=== PATIENT | male | born 1955 | race Caucasian/White ===

== ENCOUNTER 2021-06-05 19:37 | Inpatient (IN) | payer MEDICARE ==
[2021-06-05 20:04] LABS: #Basophils 0.1 10x3/uL (0.0-0.2); #Eosinphils 0.1 10x3/uL (0.0-0.5); #Monocytes 0.5 10x3/uL (0.0-1.1); #Neutrophils 5.2 10x3/uL (1.5-8.4); %Basophils 0.9 % (0.0-2.0); %Eosinophils 1.4 % (0.0-6.0); %Lymphocytes 9.8 % (18.0-47.0); %Monocytes 8.3 % (0.0-10.0); %Neutrophils 79.1 % (40.0-75.0); Hemoglobin 10.2 g/dL (13.5-17.5); Mean Corpuscular HGB CONC 30.6 g/dL (32.0-36.0); Mean Corpuscular Hemoglobin 27.3 pg (27.0-33.0); Mean Platelet Volume 10.6 fl (7.4-10.4); Platelet Count 223 10x3/uL (150-450); RBC Distribution Width 16.3 % (11.5-14.5); Red Blood Cell (RBC) Count 3.74 10x6/uL (4.32-5.72); White Blood Cell (WBC) Count 6.5 10x3/uL (3.5-10.5)
[2021-06-05 20:23] LABS: ALT (SGPT) 16 U/L (8-55); AST (SGOT) 15 U/L (5-34); Albumin 3.5 g/dL (3.4-4.8); Alkaline Phosphatase 86 U/L (40-110); Anion Gap 18 mmol/L (10-20); BUN (Urea Nitrogen) 53 mg/dL (8.4-25.7); Bilirubin, Total 2.1 mg/dL (0.2-1.2); Calc. Creatinine Clearance 0 mL/min (70-130); Calcium 8.5 mg/dL (7.8-10.44); Carbon Dioxide 16 mmol/L (23-31); Chloride 109 mmol/L (98-107); Glucose 183 mg/dL (80-115); Potassium 4.4 mmol/L (3.5-5.1); Protein, Total 7.5 g/dL (5.8-8.1); Sodium 139 mmol/L (136-145)
[2021-06-05 20:51] LABS: CKMB 1.8 ng/mL (0-6.6)
[2021-06-05] MEDS ORDERED: Furosemide 40 MG/4 ML VIAL ONE (22:18)
[2021-06-05] MEDS ORDERED: Lidocaine Viscous Sol 2% 15 ml UD Cup ONE (22:24)
[2021-06-05] MEDS ORDERED: Acetaminophen/Codeine 30-300mg Tablet PO SCH (22:45)
[2021-06-05] MEDS ORDERED: hydrALAZINE 25 MG TAB PO SCH (22:45)
[2021-06-05] MEDS ORDERED: Furosemide 40 MG/4 ML VIAL SLOW IVP SCH (22:45)
[2021-06-05] MEDS ORDERED: Apixaban 5 MG TAB PO SCH (22:45)
[2021-06-05] MEDS ORDERED: Isosorbide Dinitrate 20 MG TAB PO SCH (22:45)
[2021-06-05 22:58] LABS: Magnesium 1.8 mg/dL (1.6-2.6)
[2021-06-06] MEDS ORDERED: Isosorbide Dinitrate 20 MG TAB PO SCH (01:00)
[2021-06-06] MEDS ORDERED: Isosorbide Dinitrate 10 MG TAB PO SCH (01:15)
[2021-06-06 04:33] LABS: #Basophils 0.1 10x3/uL (0.0-0.2); #Eosinphils 0.1 10x3/uL (0.0-0.5); #Monocytes 0.6 10x3/uL (0.0-1.1); #Neutrophils 3.8 10x3/uL (1.5-8.4); %Basophils 0.9 % (0.0-2.0); %Eosinophils 2.1 % (0.0-6.0); %Lymphocytes 14.7 % (18.0-47.0); %Monocytes 10.7 % (0.0-10.0); %Neutrophils 71.4 % (40.0-75.0); Hemoglobin 9.8 g/dL (13.5-17.5); Mean Corpuscular HGB CONC 31.8 g/dL (32.0-36.0); Mean Corpuscular Hemoglobin 27.8 pg (27.0-33.0); Mean Corpuscular Volume 87.3 fl (81.2-95.1); Mean Platelet Volume 10.8 fl (7.4-10.4); Platelet Count 202 10x3/uL (150-450); RBC Distribution Width 16.2 % (11.5-14.5); Red Blood Cell (RBC) Count 3.53 10x6/uL (4.32-5.72); White Blood Cell (WBC) Count 5.3 10x3/uL (3.5-10.5)
[2021-06-06 04:41] LABS: Anion Gap 17 mmol/L (10-20); BUN (Urea Nitrogen) 54 mg/dL (8.4-25.7); Calc. Creatinine Clearance 22 mL/min (70-130); Calcium 8.6 mg/dL (7.8-10.44); Carbon Dioxide 17 mmol/L (23-31); Chloride 110 mmol/L (98-107); Glucose 155 mg/dL (80-115); Potassium 4.2 mmol/L (3.5-5.1); Sodium 140 mmol/L (136-145)
[2021-06-06] MEDS ORDERED: Furosemide 40 MG/4 ML VIAL SLOW IVP SCH (06:00)
[2021-06-06] MEDS: Tamsulosin HCl 0.4 MG CAP PO SCH (08:42)
[2021-06-06] MEDS: Allopurinol 100 MG TAB PO SCH (08:42)
[2021-06-06] MEDS: Apixaban 5 MG TAB PO SCH ×2 (08:42→20:32)
[2021-06-06] MEDS: hydrALAZINE 25 MG TAB PO SCH ×3 (08:42→20:32)
[2021-06-06] MEDS: Aspirin 81 mg Enteric Coated Tablet PO SCH (08:43)
[2021-06-06] MEDS: Isosorbide Dinitrate 10 MG TAB PO SCH ×3 (08:43→20:32)
[2021-06-06] MEDS: glipiZIDE 5 MG TAB PO SCH (08:43)
[2021-06-06 09:57] LABS: Troponin I 0.042 ng/mL (< 0.028)
[2021-06-06 12:54] LABS: Troponin I 0.043 ng/mL (< 0.028)
[2021-06-06] MEDS ORDERED: Furosemide 20 MG/2 ML VIAL SLOW IVP SCH (16:30)
[2021-06-06] MEDS ORDERED: Carvedilol 6.25 MG TAB PO SCH (18:15)
[2021-06-07 05:00] LABS: #Basophils 0.1 10x3/uL (0.0-0.2); #Eosinphils 0.3 10x3/uL (0.0-0.5); #Monocytes 0.5 10x3/uL (0.0-1.1); #Neutrophils 2.9 10x3/uL (1.5-8.4); %Basophils 1.3 % (0.0-2.0); %Lymphocytes 18.7 % (18.0-47.0); %Monocytes 11.3 % (0.0-10.0); %Neutrophils 62.3 % (40.0-75.0); Hemoglobin 9.2 g/dL (13.5-17.5); Mean Corpuscular HGB CONC 30.1 g/dL (32.0-36.0); Mean Corpuscular Hemoglobin 27.2 pg (27.0-33.0); Mean Corpuscular Volume 90.5 fl (81.2-95.1); Mean Platelet Volume 10.5 fl (7.4-10.4); Platelet Count 183 10x3/uL (150-450); Red Blood Cell (RBC) Count 3.38 10x6/uL (4.32-5.72); White Blood Cell (WBC) Count 4.7 10x3/uL (3.5-10.5)
[2021-06-07 05:17] LABS: Anion Gap 16 mmol/L (10-20); BUN (Urea Nitrogen) 56 mg/dL (8.4-25.7); Calc. Creatinine Clearance 21 mL/min (70-130); Calcium 8.3 mg/dL (7.8-10.44); Carbon Dioxide 18 mmol/L (23-31); Chloride 108 mmol/L (98-107); Glucose 87 mg/dL (80-115); Sodium 138 mmol/L (136-145)
[2021-06-07] MEDS: Carvedilol 6.25 MG TAB PO SCH ×3 (10:11→16:31)
[2021-06-07] MEDS: Tamsulosin HCl 0.4 MG CAP PO SCH (10:12)
[2021-06-07] MEDS: hydrALAZINE 25 MG TAB PO SCH ×3 (10:12→21:19)
[2021-06-07] MEDS: glipiZIDE 5 MG TAB PO SCH (10:12)
[2021-06-07] MEDS: Allopurinol 100 MG TAB PO SCH (10:12)
[2021-06-07] MEDS: Apixaban 5 MG TAB PO SCH ×2 (10:12→21:19)
[2021-06-07] MEDS: Aspirin 81 mg Enteric Coated Tablet PO SCH (10:12)
[2021-06-07] MEDS: Isosorbide Dinitrate 10 MG TAB PO SCH ×3 (10:12→21:19)
[2021-06-08] MEDS ORDERED: Isosorbide Dinitrate 10 MG TAB ONE (08:19)
[2021-06-08 08:48] LABS: Anion Gap 15 mmol/L (10-20); BUN (Urea Nitrogen) 60 mg/dL (8.4-25.7); Calc. Creatinine Clearance 0 mL/min (70-130); Carbon Dioxide 18 mmol/L (23-31); Chloride 108 mmol/L (98-107); Glucose 110 mg/dL (80-115); Potassium 4.1 mmol/L (3.5-5.1); Sodium 137 mmol/L (136-145)
[2021-06-08] MEDS: hydrALAZINE 25 MG TAB PO SCH ×3 (09:35→20:07)
[2021-06-08] MEDS: Aspirin 81 mg Enteric Coated Tablet PO SCH (09:35)
[2021-06-08] MEDS: Isosorbide Dinitrate 10 MG TAB PO SCH ×3 (09:35→20:08)
[2021-06-08] MEDS: glipiZIDE 5 MG TAB PO SCH (09:35)
[2021-06-08] MEDS: Allopurinol 100 MG TAB PO SCH (09:35)
[2021-06-08] MEDS: Tamsulosin HCl 0.4 MG CAP PO SCH (09:35)
[2021-06-08] MEDS: Apixaban 5 MG TAB PO SCH (09:36)
[2021-06-08] MEDS: Furosemide 20 MG/2 ML VIAL SLOW IVP SCH (09:41)
[2021-06-08 10:30] VITALS: BMI 29.5
[2021-06-08] MEDS ORDERED: CEFAZOLIN 2 GM in Premix Bag 1 BAG IVPB SCH (14:30)
[2021-06-08] MEDS: Carvedilol 6.25 MG TAB PO SCH (15:57)
[2021-06-08 21:57] LABS: SARS-CoV-2 NAA Rapid Test Not Detected (NotDetected)
[2021-06-09] MEDS: Carvedilol 6.25 MG TAB PO SCH ×2 (06:31→18:14)
[2021-06-09] MEDS: Furosemide 20 MG/2 ML VIAL SLOW IVP SCH (09:01)
[2021-06-09] MEDS: Isosorbide Dinitrate 10 MG TAB PO SCH ×3 (09:01→21:08)
[2021-06-09] MEDS: Tamsulosin HCl 0.4 MG CAP PO SCH (09:01)
[2021-06-09] MEDS: Aspirin 81 mg Enteric Coated Tablet PO SCH (09:01)
[2021-06-09] MEDS: glipiZIDE 5 MG TAB PO SCH (09:01)
[2021-06-09] MEDS: hydrALAZINE 25 MG TAB PO SCH ×3 (09:01→21:08)
[2021-06-09] MEDS: Allopurinol 100 MG TAB PO SCH (09:01)
[2021-06-09] MEDS ORDERED: EPINEPHrine 1 MG/ML AMP ONE (12:08)
[2021-06-09] MEDS ORDERED: Lidocaine 2% 20 ml MDV ONE (12:08)
[2021-06-09] MEDS ORDERED: Bupivacaine PF 0.5% 30 ML VIAL ONE ×2 (12:09→14:31)
[2021-06-09] MEDS ORDERED: Protamine Sulfate 50 MG/5 ML VIAL ONE (12:09)
[2021-06-09] MEDS ORDERED: Heparin 5,000 UNITS/ML VIAL ONE (12:13)
[2021-06-09] MEDS ORDERED: Heparin 1,000 UNITS/ML VIAL ONE (12:13)
[2021-06-09] MEDS ORDERED: Phenylephrine 40 MG/NS 250 ML 250 ML ONE (12:31)
[2021-06-09] MEDS ORDERED: PROPOFOL 20 ML ONE (12:32)
[2021-06-09] MEDS ORDERED: Ketamine 50 MG/ML (10ML VIAL) ONE (13:37)
[2021-06-09] MEDS ORDERED: Midazolam HCl 2 mg/2 ml Vial ONE (13:37)
[2021-06-09] MEDS ORDERED: Heparin 10,000 UNITS/ 10 ML VIAL ONE ×2 (14:01→15:03)
[2021-06-09] MEDS ORDERED: Acetaminophen 325 MG TAB PO PRN (20:33)
[2021-06-09] MEDS: Acetaminophen/Codeine 30-300mg Tablet PO PRN (21:08)
[2021-06-10] MEDS: Acetaminophen/Codeine 30-300mg Tablet PO PRN (01:19)
[2021-06-10] MEDS ORDERED: Morphine 4 MG/ML VIAL SLOW IVP SCH ×2 (02:00→06:15)
[2021-06-10 08:07] LABS: #Eosinphils 0.3 10x3/uL (0.0-0.5); #Monocytes 0.6 10x3/uL (0.0-1.1); #Neutrophils 3.6 10x3/uL (1.5-8.4); %Basophils 0.7 % (0.0-2.0); %Eosinophils 4.6 % (0.0-6.0); %Lymphocytes 17.6 % (18.0-47.0); %Monocytes 11.1 % (0.0-10.0); %Neutrophils 65.8 % (40.0-75.0); Hemoglobin 9.2 g/dL (13.5-17.5); Mean Corpuscular HGB CONC 31.2 g/dL (32.0-36.0); Mean Corpuscular Hemoglobin 28.2 pg (27.0-33.0); Mean Corpuscular Volume 90.5 fl (81.2-95.1); Mean Platelet Volume 9.9 fl (7.4-10.4); Platelet Count 168 10x3/uL (150-450); RBC Distribution Width 16.6 % (11.5-14.5); Red Blood Cell (RBC) Count 3.26 10x6/uL (4.32-5.72); White Blood Cell (WBC) Count 5.4 10x3/uL (3.5-10.5)
[2021-06-10] MEDS ORDERED: Heparin 10,000 UNITS/ 10 ML VIAL SLOW IVP PRN (12:03)
[2021-06-10 12:25] LABS: HIV (1/2) Antibody/Antigen Non-Reactive (NonReactive); HIV 1/2 INDEX 0.07 S/CO (<1.00); Hep B Surf Ag Non-Reactive S/CO (NonReactive)
[2021-06-10] MEDS: Carvedilol 6.25 MG TAB PO SCH ×2 (12:29→16:03)
[2021-06-10] MEDS: hydrALAZINE 25 MG TAB PO SCH ×3 (12:29→21:20)
[2021-06-10] MEDS: Aspirin 81 mg Enteric Coated Tablet PO SCH (12:29)
[2021-06-10] MEDS: Allopurinol 100 MG TAB PO SCH (12:29)
[2021-06-10] MEDS: Isosorbide Dinitrate 10 MG TAB PO SCH ×3 (12:29→21:20)
[2021-06-10] MEDS: glipiZIDE 5 MG TAB PO SCH (12:29)
[2021-06-10] MEDS: Furosemide 20 MG/2 ML VIAL SLOW IVP SCH (12:29)
[2021-06-10] MEDS: Tamsulosin HCl 0.4 MG CAP PO SCH (12:30)
[2021-06-10 12:37] LABS: HBSAg Index 0.21 S/CO (0-0.99)
[2021-06-10] MEDS ORDERED: HYDROcodone/Acetaminophen 5/325 mg Tablet PO PRN (13:42)
[2021-06-10] MEDS: Morphine 4 MG/ML VIAL SLOW IVP PRN ×3 (13:51→22:21)
[2021-06-11 01:02] LABS: HBSAB Concentration Less than 8.00 mIU/mL; Hep B Core Total Ab Non-Reactive (NonReactive); Hep B Core Total Index 0.03 S/CO (0-0.79); Hep B Surf AB Non-Reactive (NonReactive); Hep C IgG Ab Non-Reactive (NonReactive); Hep C Index 0.04 S/CO (0-0.79)
[2021-06-11] MEDS: Morphine 4 MG/ML VIAL SLOW IVP PRN ×5 (04:47→22:33)
[2021-06-11] MEDS: Isosorbide Dinitrate 10 MG TAB PO SCH ×3 (09:01→21:01)
[2021-06-11] MEDS: Aspirin 81 mg Enteric Coated Tablet PO SCH (09:01)
[2021-06-11] MEDS: hydrALAZINE 25 MG TAB PO SCH (09:01)
[2021-06-11] MEDS: Apixaban 5 MG TAB PO SCH ×2 (09:01→21:01)
[2021-06-11] MEDS: Carvedilol 6.25 MG TAB PO SCH ×2 (09:01→17:26)
[2021-06-11] MEDS: Tamsulosin HCl 0.4 MG CAP PO SCH (09:01)
[2021-06-11] MEDS: Allopurinol 100 MG TAB PO SCH (09:01)
[2021-06-11] MEDS: glipiZIDE 5 MG TAB PO SCH (10:38)
[2021-06-11] MEDS ORDERED: Tuberculin PPD 0.1 ML VIAL I-DERMAL SCH (16:00)
[2021-06-12] MEDS: Morphine 4 MG/ML VIAL SLOW IVP PRN ×5 (02:37→22:46)
[2021-06-12 08:22] LABS: #Basophils 0.1 10x3/uL (0.0-0.2); #Eosinphils 0.4 10x3/uL (0.0-0.5); #Monocytes 0.7 10x3/uL (0.0-1.1); #Neutrophils 2.8 10x3/uL (1.5-8.4); %Eosinophils 7.4 % (0.0-6.0); %Lymphocytes 20.9 % (18.0-47.0); %Monocytes 13.5 % (0.0-10.0); %Neutrophils 56.6 % (40.0-75.0); Hemoglobin 9.6 g/dL (13.5-17.5); Mean Corpuscular HGB CONC 30.5 g/dL (32.0-36.0); Mean Corpuscular Hemoglobin 27.4 pg (27.0-33.0); Mean Platelet Volume 10.9 fl (7.4-10.4); Platelet Count 149 10x3/uL (150-450); RBC Distribution Width 16.8 % (11.5-14.5)
[2021-06-12 08:31] LABS: Anion Gap 12 mmol/L (10-20); BUN (Urea Nitrogen) 55 mg/dL (8.4-25.7); Calc. Creatinine Clearance 21 mL/min (70-130); Calcium 8.3 mg/dL (7.8-10.44); Carbon Dioxide 21 mmol/L (23-31); Chloride 103 mmol/L (98-107); Glucose 75 mg/dL (80-115); Potassium 4.3 mmol/L (3.5-5.1); Sodium 132 mmol/L (136-145)
[2021-06-12] MEDS: Aspirin 81 mg Enteric Coated Tablet PO SCH (09:07)
[2021-06-12] MEDS: glipiZIDE 5 MG TAB PO SCH (09:07)
[2021-06-12] MEDS: Allopurinol 100 MG TAB PO SCH (09:07)
[2021-06-12] MEDS: Apixaban 5 MG TAB PO SCH ×2 (09:07→20:10)
[2021-06-12] MEDS: Tamsulosin HCl 0.4 MG CAP PO SCH (09:09)
[2021-06-12] MEDS: Furosemide 40 MG TAB PO SCH (09:09)
[2021-06-12] MEDS: Carvedilol 6.25 MG TAB PO SCH ×2 (09:09→16:36)
[2021-06-12] MEDS: Isosorbide Dinitrate 10 MG TAB PO SCH ×3 (09:09→20:10)
[2021-06-13] MEDS: Morphine 4 MG/ML VIAL SLOW IVP PRN ×4 (02:47→16:52)
[2021-06-13] MEDS ORDERED: READ PPD TEST SITE PO SCH (09:00)
[2021-06-13] MEDS: Carvedilol 6.25 MG TAB PO SCH ×2 (09:19→16:51)
[2021-06-13] MEDS: Tamsulosin HCl 0.4 MG CAP PO SCH (09:19)
[2021-06-13] MEDS: Apixaban 5 MG TAB PO SCH ×2 (09:19→20:07)
[2021-06-13] MEDS: Furosemide 40 MG TAB PO SCH (09:19)
[2021-06-13] MEDS: Allopurinol 100 MG TAB PO SCH (09:19)
[2021-06-13] MEDS: Isosorbide Dinitrate 10 MG TAB PO SCH ×3 (09:19→20:07)
[2021-06-13] MEDS: glipiZIDE 5 MG TAB PO SCH (09:19)
[2021-06-13] MEDS: Aspirin 81 mg Enteric Coated Tablet PO SCH (09:19)
[2021-06-13 11:11] LABS: HIV-1 Quantitative, RNA PCR <20 copies/mL (.)
[2021-06-14] MEDS: Morphine 4 MG/ML VIAL SLOW IVP PRN ×5 (01:09→20:02)
[2021-06-14] MEDS: Isosorbide Dinitrate 10 MG TAB PO SCH ×4 (08:34→20:03)
[2021-06-14] MEDS: Allopurinol 100 MG TAB PO SCH (08:34)
[2021-06-14] MEDS: Aspirin 81 mg Enteric Coated Tablet PO SCH (08:34)
[2021-06-14] MEDS: Carvedilol 6.25 MG TAB PO SCH ×3 (08:34→16:38)
[2021-06-14] MEDS: Tamsulosin HCl 0.4 MG CAP PO SCH (08:34)
[2021-06-14] MEDS: Furosemide 40 MG TAB PO SCH (08:34)
[2021-06-14] MEDS: Apixaban 5 MG TAB PO SCH ×2 (08:34→20:01)
[2021-06-14] MEDS: glipiZIDE 5 MG TAB PO SCH (08:34)
[2021-06-14] MEDS: Calamine/Zinc Oxide 177 ML LOTION TP SCH (22:38)
[2021-06-15] MEDS: Morphine 4 MG/ML VIAL SLOW IVP PRN ×2 (00:27→04:52)
[2021-06-15] MEDS: Aspirin 81 mg Enteric Coated Tablet PO SCH (08:32)
[2021-06-15] MEDS: Apixaban 5 MG TAB PO SCH (08:32)
[2021-06-15] MEDS: Tamsulosin HCl 0.4 MG CAP PO SCH (08:33)
[2021-06-15] MEDS: Calamine/Zinc Oxide 177 ML LOTION TP SCH ×3 (08:33→18:09)
[2021-06-15] MEDS: glipiZIDE 5 MG TAB PO SCH (08:33)
[2021-06-15] MEDS: Allopurinol 100 MG TAB PO SCH (08:33)
[2021-06-15 09:03] LABS: Anion Gap 12 mmol/L (10-20); BUN (Urea Nitrogen) 31 mg/dL (8.4-25.7); Calc. Creatinine Clearance 29 mL/min (70-130); Calcium 8.5 mg/dL (7.8-10.44); Carbon Dioxide 25 mmol/L (23-31); Chloride 102 mmol/L (98-107); Glucose 98 mg/dL (80-115); Potassium 4.3 mmol/L (3.5-5.1); Sodium 135 mmol/L (136-145)
[2021-06-15] MEDS: Furosemide 40 MG TAB PO SCH (12:30)
[2021-06-15] MEDS: Isosorbide Dinitrate 10 MG TAB PO SCH ×2 (12:30→15:59)
[2021-06-15] MEDS: Carvedilol 6.25 MG TAB PO SCH (12:31)
[2021-06-15] MEDS ORDERED: Carvedilol 3.125 MG TAB PO SCH (17:00)
[2021-06-15 20:34] VITALS: BP 117/68; TEMP 97.9
== END 2021-06-15 20:35 | disposition home or self-care (01) | DRG 264 ==
LOC: CSHERS 19:37 → CSHTELE 23:46
PROVIDERS: ADMIT Family Medicine; ATTEND Hospitalist
PROC: 031B0ZF Bypass Right Radial Artery to Lower Arm Vein, Open Approach (ICD-10-PCS; principal; 2021-06-09)
PROC: 02HV33Z Insertion of Infusion Device into Superior Vena Cava, Percutaneous Approach (ICD-10-PCS; 2021-06-09)
PROC: B5181ZA Fluoroscopy of Superior Vena Cava using Low Osmolar Contrast, Guidance (ICD-10-PCS; 2021-06-09)
PROC: 0JH60XZ Insertion of Tunneled Vascular Access Device into Chest Subcutaneous Tissue and Fascia, Open Approach (ICD-10-PCS; 2021-06-09)
PROC: B548ZZA Ultrasonography of Superior Vena Cava, Guidance (ICD-10-PCS; 2021-06-09)
PROC: 5A1D70Z Performance of Urinary Filtration, Intermittent, Less than 6 Hours Per Day (ICD-10-PCS; 2021-06-09)
DX: I13.2 Hypertensive heart and chronic kidney disease with heart failure and with stage 5 chronic kidney disease, or end stage renal disease (principal); N18.6 End stage renal disease; I50.23 Acute on chronic systolic (congestive) heart failure; I48.11 Longstanding persistent atrial fibrillation; I82.611 Acute embolism and thrombosis of superficial veins of right upper extremity; Z20.822 Contact with and (suspected) exposure to COVID-19; I25.10 Atherosclerotic heart disease of native coronary artery without angina pectoris; E78.5 Hyperlipidemia, unspecified; N40.0 Benign prostatic hyperplasia without lower urinary tract symptoms; I42.0 Dilated cardiomyopathy; E11.22 Type 2 diabetes mellitus with diabetic chronic kidney disease; D64.9 Anemia, unspecified; Z88.8 Allergy status to other drugs, medicaments and biological substances; Z79.82 Long term (current) use of aspirin; Z79.899 Other long term (current) drug therapy; Z95.5 Presence of coronary angioplasty implant and graft; Z95.810 Presence of automatic (implantable) cardiac defibrillator; Z87.891 Personal history of nicotine dependence; Z79.01 Long term (current) use of anticoagulants
CPT/HCPCS: 36415; 36416; 71045; 80048; 80053; 82553; 83735; 83880; 84484; 85025; 86480; 86580; 86704; 86706; 86803; 87340; 87389; 87536; 90935; 93005; 93010; 93970; 96374; C1751; C1752; C1776; G0257; J0171; J0690; J1644; J1940; J2250; J2270; J2704; J2720; S0020; U0002

== ENCOUNTER 2024-05-17 11:12 | Emergency (ER) | payer MEDICARE ==
[2024-05-17 13:04] LABS: ALT (SGPT) 8 U/L (8-55); AST (SGOT) 11 U/L (5-34); Albumin 3.3 g/dL (3.4-4.8); Alkaline Phosphatase 109 U/L (40-110); Anion Gap 15 mmol/L (10-20); BUN (Urea Nitrogen) 31 mg/dL (8.4-25.7); Bilirubin, Total 3.2 mg/dL (0.2-1.2); Calc. Creatinine Clearance 0 mL/min (70-130); Calcium 9.2 mg/dL (7.8-10.44); Carbon Dioxide 28 mmol/L (23-31); Chloride 98 mmol/L (98-107); Estimated GFR 15; Globulin 3.9 g/dL (2.4-3.5); Glucose 156 mg/dL (80-115); Potassium 4.1 mmol/L (3.5-5.1); Protein, Total 7.2 g/dL (5.8-8.1); Sodium 137 mmol/L (136-145)
[2024-05-17 13:07] LABS: Troponin I 0.038 ng/mL (< 0.028)
[2024-05-17] MEDS ORDERED: Acetaminophen 325 MG TAB PO SCH (13:15)
[2024-05-17 13:28] LABS: #Basophils 0.05 10x3/uL (0.0-0.2); #Monocytes 0.76 10x3/uL (0.0-1.1); #Neutrophils 3.94 10x3/uL (1.5-8.4); %Basophils 0.8 % (0.0-2.0); %Eosinophils 1.7 % (0.0-6.0); %Lymphocytes 17.7 % (18.0-47.0); %Monocytes 12.8 % (0.0-10.0); %Neutrophils 66.7 % (40.0-75.0); Hematocrit 37.2 % (38.8-50.0); Hemoglobin 12.3 g/dL (13.5-17.5); Mean Corpuscular HGB CONC 33.1 g/dL (32.0-36.0); Mean Corpuscular Hemoglobin 29.1 pg (27.0-33.0); Mean Corpuscular Volume 88.2 fL (81.2-95.1); Mean Platelet Volume 11.3 fL (7.4-10.4); RBC Distribution Width 15.3 % (11.5-14.5); Red Blood Cell (RBC) Count 4.22 10x6/uL (4.32-5.72); White Blood Cell (WBC) Count 5.9 10x3/uL (3.5-10.5)
[2024-05-17 13:29] LABS: Platelet Adequacy Comment Appears Decreased; Platelet Count 75 10x3/uL (150-450)
[2024-05-17 16:09] LABS: Troponin I 0.031 ng/mL (< 0.028)
== END 2024-05-17 16:46 | disposition home or self-care (01) ==
LOC: CSHERS 11:12
DX: R06.02 Shortness of breath (principal); I13.0 Hypertensive heart and chronic kidney disease with heart failure and stage 1 through stage 4 chronic kidney disease, or unspecified chronic kidney disease; N18.9 Chronic kidney disease, unspecified; I50.9 Heart failure, unspecified; I25.10 Atherosclerotic heart disease of native coronary artery without angina pectoris; E78.5 Hyperlipidemia, unspecified; I48.91 Unspecified atrial fibrillation; E11.22 Type 2 diabetes mellitus with diabetic chronic kidney disease; Z87.891 Personal history of nicotine dependence
CPT/HCPCS: 71046; 80053; 83880; 84484; 85025; 87428; 93005